=== PATIENT | female | born 1980 | race Hispanic/Latino ===

== ENCOUNTER 2021-09-30 01:12 | Emergency (ER) | payer MEDICARE ==
[2021-09-30 02:35] VITALS: BP 114/66
[2021-09-30] MEDS ORDERED: MORPHINE 4 MG/1 ML INJ IV ONE (03:00)
[2021-09-30] MEDS ORDERED: FAMOTIDINE 20 MG/2 ML INJ IV ONE (03:00)
[2021-09-30] MEDS ORDERED: SODIUM CHLORIDE 0.9% 1000 ML 1,000 ML IV ONE (03:00)
[2021-09-30] MEDS ORDERED: DICYCLOMINE 20 MG/2 ML INJ IM ONE (03:00)
[2021-09-30] MEDS ORDERED: ONDANSETRON 4 MG/2 ML INJ IV ONE (03:00)
--- NOTE | 2021-09-30 03:24 | XRay Report ---
CHEST 1 VIEW INDICATION / CLINICAL INFORMATION: dyspnea. COMPARISON: None available. FINDINGS: SUPPORT DEVICES: None. HEART / MEDIASTINUM: No significant abnormality. LUNGS / PLEURA: No significant pulmonary or pleural abnormality. No pneumothorax. ADDITIONAL FINDINGS: No significant additional findings. IMPRESSION: 1. No acute findings. Signer Name: Grecia Quick MD Signed: 09/30/2021 3:19 AM Workstation Name: [id number]
--- NOTE | 2021-09-30 03:33 | Emergency Department Report ---
ED N/V/D HPI - General Chief complaint: Abdominal Pain Stated complaint: FRANCIA/ABDOMINAL PAIN Time Seen by Provider: 09/30/21 02:54 Source: patient Mode of arrival: Ambulatory Limitations: No Limitations - History of Present Illness Initial comments: Patient is a 41-year-old female who is presenting with some epigastric discomfort and nausea. Patient states that 2 days ago she ate some pickled garlic. This is some that she made herself. She open the container and noticed that there was some mold growing. She thought she had taken out all the moldy pieces and ate a few but then the next day noted that she has some epigastric discomfort and nausea. Patient denies actual vomiting or diarrhea. States that there is some gurgling in her abdomen. Noted the next day that all of the garlic had turned green. Patient was concerned about botulism. She states she is short of breath and feels anxious. Patient has no drooping eyelids slurred speech problems speaking. Is no weakness in her shoulders and she still has ability to walk. - Related Data Previous Rx's Medication Instructions Recorded Last Taken Type Dicyclomine [Bentyl] 20 mg PO QID #10 tablet 09/30/21 Unknown Rx Famotidine [Pepcid] 20 mg PO BID #20 tablet 09/30/21 Unknown Rx Ondansetron [Zofran Odt] 4 mg PO Q8HR #14 tab.rapdis 09/30/21 Unknown Rx Allergies Allergy/AdvReac Type Severity Reaction Status Date / Time aripiprazole [From Abilify] Allergy Anaphylaxis Verified 09/30/21 02:39 azithromycin Allergy Anaphylaxis Verified 09/30/21 02:39 butorphanol [From Stadol] Allergy Anaphylaxis Verified 09/30/21 02:39 vortioxetine Allergy Anaphylaxis Verified 09/30/21 02:39 [From Trintellix] ED Review of Systems ROS: Stated complaint: FRANCIA/ABDOMINAL PAIN Other details as noted in HPI Comment: All other systems reviewed and negative ED Past Medical Hx - Past Medical History Previous Medical History?: Yes - Surgical History Past Surgical History?: No - Medications Home Medications: Home Medications Medication Instructions Recorded Confirmed Last Taken Type Dicyclomine [Bentyl] 20 mg PO QID #10 tablet 09/30/21 Unknown Rx Famotidine [Pepcid] 20 mg PO BID #20 tablet 09/30/21 Unknown Rx Ondansetron [Zofran Odt] 4 mg PO Q8HR #14 tab.rapdis 09/30/21 Unknown Rx ED Physical Exam - General Limitations: No Limitations General appearance: alert, in no apparent distress - Head Head exam: Present: atraumatic, normocephalic - Eye Eye exam: Present: normal appearance - ENT ENT exam: Present: mucous membranes moist - Neck Neck exam: Present: normal inspection - Respiratory Respiratory exam: Present: normal lung sounds bilaterally. Absent: respiratory distress, wheezes, rales, rhonchi - Cardiovascular Cardiovascular Exam: Present: regular rate, normal rhythm, normal heart sounds. Absent: systolic murmur, diastolic murmur, rubs, gallop - GI/Abdominal GI/Abdominal exam: Present: soft, normal bowel sounds, hyperactive bowel sounds. Absent: distended, tenderness, guarding, rebound - Extremities Exam Extremities exam: Present: normal inspection - Back Exam Back exam: Present: normal inspection - Neurological Exam Neurological exam: Present: alert, oriented X3 - Psychiatric Psychiatric exam: Present: normal affect, normal mood - Skin Skin exam: Present: warm, dry, intact, normal color. Absent: rash ED Course Vital Signs 09/30/21 02:33 Temperature 98.7 F Pulse Rate 70 Respiratory 18 Rate Blood Pressure 114/66 O2 Sat by Pulse 96 Oximetry ED Medical Decision Making - Radiology Data CHEST 1 VIEW INDICATION / CLINICAL INFORMATION: dyspnea. COMPARISON: None available. FINDINGS: SUPPORT DEVICES: None. HEART / MEDIASTINUM: No significant abnormality. LUNGS / PLEURA: No significant pulmonary or pleural abnormality. No pneumothorax. ADDITIONAL FINDINGS: No significant additional findings. IMPRESSION: 1. No acute findings. Signer Name: Grecia Quick MD Signed: 09/30/2021 3:19 AM Workstation Name: [id number] - Medical Decision Making Regarding the patient's shortness of breath chest x-ray is within normal limits patient likely with gastritis secondary to eating some moldy pickled garlic. Patient also likely with some anxiety. Patient given Zofran and Pepcid and the patient be discharged home. Critical care attestation.: If time is entered above; I have spent that time in minutes in the direct care of this critically ill patient, excluding procedure time. ED Disposition Clinical Impression: Gastritis, Food poisoning Disposition: HOME / SELF CARE / HOMELESS Is pt being admited?: No Does the pt Need Aspirin: No Condition: Stable Instructions: Abdominal Pain (ED), Gastritis, Adult, [id number], Food Poisoning, [id number] Time of Disposition: 04:42
[2021-09-30 04:18] LABS: Hematocrit 39.5 % (30.3-42.9); Hemoglobin 13.1 gm/dl (10.1-14.3); Mean Corpuscular HGB Conc 33 % (30-34); Mean Corpuscular Volume 90 fl (79-97); Platelet Count 293 K/mm3 (140-440); Red Blood Count 4.38 M/mm3 (3.65-5.03); Red Cell Distribution Width 12.4 % (13.2-15.2)
[2021-09-30 04:28] LABS: Alanine Aminotransferase 29 units/L (7-56); Albumin 4.3 g/dL (3.9-5); BUN/Creatinine Ratio 13; Blood Urea Nitrogen 10 mg/dL (7-17); Hemolysis Index 26
[2021-09-30 05:50] LABS: Basophils % (Manual) 0 % (0.0-1.8); Total Cells Counted 100
[2021-09-30 05:52] LABS: Platelet Estimate Consistent w Auto; RBC Morphology Normal
== END 2021-09-30 05:02 | disposition home or self-care (01) ==
LOC: ED 01:12
DX: K29.70 Gastritis, unspecified, without bleeding (principal); A05.9 Bacterial foodborne intoxication, unspecified; Z88.8 Allergy status to other drugs, medicaments and biological substances; Z88.1 Allergy status to other antibiotic agents; Z79.899 Other long term (current) drug therapy
CPT/HCPCS: 36415; 71045; 80053; 83690; 85007; 85025; 96372; 96374; 96375; 99284; J0500; J2270; J2405; J3490; J7030; Q0162

== ENCOUNTER 2022-03-19 21:07 | Emergency (ER) | payer MEDICARE ==
[2022-03-19 23:21] LABS: Basophils # (Auto) 0.1 K/mm3 (0.0-0.1); Basophils % (Auto) 0.5 % (0.0-1.8); Eosinophils # (Auto) 0.1 K/mm3 (0.0-0.4); Eosinophils % (Auto) 0.7 % (0.0-4.3); Hematocrit 40.5 % (30.3-42.9); Lymphocytes # (Auto) 3.7 K/mm3 (1.2-5.4); Lymphocytes % (Auto) 27.9 % (13.4-35.0); Mean Corpuscular HGB Conc 35 % (30-34); Mean Corpuscular Volume 92 fl (79-97); Monocytes # (Auto) 0.7 K/mm3 (0.0-0.8); Monocytes % (Auto) 5.5 % (0.0-7.3); Platelet Count 279 K/mm3 (140-440); Red Blood Count 4.41 M/mm3 (3.65-5.03); Red Cell Distribution Width 13.5 % (13.2-15.2)
[2022-03-19 23:42] LABS: Alanine Aminotransferase 15 units/L (7-56); Albumin 4.7 g/dL (3.9-5); BUN/Creatinine Ratio 10; Blood Urea Nitrogen 9 mg/dL (7-17); Calcium 9.8 mg/dL (8.4-10.2); Hemolysis Index 23
[2022-03-20] MEDS ORDERED: FAMOTIDINE 20 MG/2 ML INJ IV ONE (02:00)
[2022-03-20] MEDS ORDERED: MORPHINE 4 MG/1 ML INJ IV ONE (02:01)
[2022-03-20] MEDS ORDERED: PROCHLORPERAZINE EDISYLATE 10 MG/2 ML VIAL IV ONE (02:01)
[2022-03-20] MEDS ORDERED: PROMETHAZINE 25 MG TAB PO ONE (02:58)
[2022-03-20] MEDS ORDERED: FAMOTIDINE 20 MG TAB PO ONE (02:58)
[2022-03-20 03:20] LABS: Bacteria,Urine 1+ /HPF (Negative); Mucus,Urine 3+ /HPF
[2022-03-20 03:21] LABS: Bilirubin,Urine Negative (Negative); Color,Urine Yellow (Yellow)
[2022-03-20 03:22] LABS: Blood,Urine Moderate (Negative)
--- NOTE | 2022-03-20 03:34 | Cat Scan Report ---
CT ABDOMEN AND PELVIS WITHOUT CONTRAST INDICATION / CLINICAL INFORMATION: Abdominal pain, h/o chronic pancreatitis. TECHNIQUE: Axial CT images were obtained through the abdomen and pelvis without IV contrast. All CT scans at this location are performed using CT dose reduction for ALARA by means of automated exposure control. COMPARISON: None available. FINDINGS: LOWER CHEST: No significant abnormality of the imaged chest. LIVER: No focal lesion. No acute findings. GALLBLADDER / BILE DUCTS: Cholecystectomy. Biliary ducts grossly unremarkable. SPLEEN: No significant abnormality. PANCREAS: No significant abnormality. ADRENALS: No significant abnormality. KIDNEYS/URETERS: No stones or hydronephrosis. No solid renal lesion. STOMACH / DUODENUM / SMALL BOWEL: The stomach, duodenum, and small bowel demonstrate no significant a bnormality. No specific abnormality of the mesentery demonstrated. COLON: No significant abnormality. APPENDIX: No significant abnormality. PERITONEUM: No free air or free fluid are present within the abdomen or pelvis. LYMPH NODES: No significant adenopathy. AORTA / ARTERIES: No significant abnormality. IVC / VEINS: No significant abnormality. URINARY BLADDER: Decompressed REPRODUCTIVE ORGANS: No significant abnormality. SKELETAL SYSTEM: No significant abnormality. ADDITIONAL ABDOMINAL/PELVIC FINDINGS: None. IMPRESSION: 1. No imaging findings to suggest etiology of the provided symptoms. Signer Name: Jeremiah Young II, MD Signed: 03/20/2022 3:30 AM Workstation Name: [id number]
[2022-03-20] MEDS ORDERED: LIDOCAINE-MPF (1%) 10 MG/1 ML VIAL 5 ML INFILTRATI ONE (04:06)
--- NOTE | 2022-03-20 04:13 | Emergency Department Report ---
ED Abdominal Pain HPI - General Chief Complaint: Abdominal Pain Stated Complaint: N/V, ABDOMINAL PAIN Source: patient Mode of arrival: Ambulatory Limitations: No Limitations - History of Present Illness Initial Comments: Patient is a 41-year-old female with a history of chronic pancreatitis who presents to the ED with complaint of acute onset persistent epigastric pain that radiates to the periumbilical area and mid posterior thoracic area as well as low back pain with nausea and vomiting for the last 3 days. Patient states that the symptoms are consistent with her chronic pancreatitis flareup. Patient also states that she has hardly voided urine because of nausea and vomiting limiting her ability to drink fluids. Patient denies dizziness, syncope, chest pain, shortness of breath, diarrhea, dysuria, urinary frequency and urgency, chest pain and shortness of breath, fever and chills or headache and lightheadedness. MD Complaint: abdominal pain, other (Nausea and vomiting, mid and low back pain) -: Sudden, days(s) (3) Location: periumbilical, epigastric Radiation: epigastric, back Migration to: no migration Severity: severe Severity scale (0 -10): 10 Quality: aching, sharp Consistency: constant Improves With: nothing Worsens With: nothing Associated Symptoms: denies other symptoms, nausea, vomiting, anorexia. denies: diarrhea, fever, chills, dysuria, hematemesis, hematochezia, melena, hematuria, syncope - Related Data Previous Rx's Medication Instructions Recorded Last Taken Type Dicyclomine [Bentyl] 20 mg PO QID #10 tablet 09/30/21 Unknown Rx Famotidine [Pepcid] 20 mg PO BID #20 tablet 09/30/21 Unknown Rx Ondansetron [Zofran Odt] 4 mg PO Q8HR #14 tab.rapdis 09/30/21 Unknown Rx Dicyclomine [Bentyl] 20 mg PO Q6H PRN #30 tablet 03/20/22 Unknown Rx Famotidine [Pepcid] 20 mg PO BID #60 tablet 03/20/22 Unknown Rx Ketorolac [Toradol] 10 mg PO Q8H PRN #20 tab 03/20/22 Unknown Rx Promethazine [Phenergan] 25 mg PO Q6HR PRN #30 tab 03/20/22 Unknown Rx cephALEXin [Keflex] 500 mg PO Q6HR #40 capsule 03/20/22 Unknown Rx Allergies Allergy/AdvReac Type Severity Reaction Status Date / Time aripiprazole [From Abilify] Allergy Anaphylaxis Verified 09/30/21 02:39 azithromycin Allergy Anaphylaxis Verified 09/30/21 02:39 butorphanol [From Stadol] Allergy Anaphylaxis Verified 09/30/21 02:39 vortioxetine Allergy Anaphylaxis Verified 09/30/21 02:39 [From Trintellix] ED Review of Systems ROS: Stated complaint: N/V, ABDOMINAL PAIN Other details as noted in HPI Constitutional: denies: chills, fever Eyes: denies: eye pain, eye discharge, vision change ENT: denies: ear pain, throat pain Respiratory: denies: cough, shortness of breath, wheezing Cardiovascular: denies: chest pain, palpitations Endocrine: no symptoms reported Gastrointestinal: abdominal pain, nausea, vomiting. denies: diarrhea Genitourinary: denies: urgency, dysuria, discharge Musculoskeletal: back pain. denies: joint swelling, arthralgia Skin: denies: rash, lesions Neurological: denies: headache, weakness, paresthesias Psychiatric: denies: anxiety, depression Hematological/Lymphatic: denies: easy bleeding, easy bruising ED Past Medical Hx - Past Medical History Previous Medical History?: Yes Additional medical history: chronic pancreatitis. Chrohn's - Surgical History Past Surgical History?: Yes Additional Surgical History: Per pt: Biliary sphincter plasty. 11 ERCP's. 3 MRCP's. facial tumor removalport placement and removal - Medications Home Medications: Home Medications Medication Instructions Recorded Confirmed Last Taken Type Dicyclomine [Bentyl] 20 mg PO QID #10 tablet 09/30/21 Unknown Rx Famotidine [Pepcid] 20 mg PO BID #20 tablet 09/30/21 Unknown Rx Ondansetron [Zofran Odt] 4 mg PO Q8HR #14 tab.rapdis 09/30/21 Unknown Rx Dicyclomine [Bentyl] 20 mg PO Q6H PRN #30 tablet 03/20/22 Unknown Rx Famotidine [Pepcid] 20 mg PO BID #60 tablet 03/20/22 Unknown Rx Ketorolac [Toradol] 10 mg PO Q8H PRN #20 tab 03/20/22 Unknown Rx Promethazine [Phenergan] 25 mg PO Q6HR PRN #30 tab 03/20/22 Unknown Rx cephALEXin [Keflex] 500 mg PO Q6HR #40 capsule 03/20/22 Unknown Rx ED Physical Exam - General Limitations: No Limitations General appearance: alert, in no apparent distress - Head Head exam: Present: atraumatic, normocephalic, normal inspection - Eye Eye exam: Present: normal appearance, PERRL, EOMI Pupils: Present: normal accommodation - ENT ENT exam: Present: normal exam, normal orophraynx, mucous membranes moist, TM's normal bilaterally, normal external ear exam - Neck Neck exam: Present: normal inspection, full ROM - Respiratory Respiratory exam: Present: normal lung sounds bilaterally. Absent: respiratory distress, wheezes, rales, rhonchi, chest wall tenderness, accessory muscle use, decreased breath sounds - Cardiovascular Cardiovascular Exam: Present: regular rate, normal rhythm, normal heart sounds. Absent: systolic murmur, diastolic murmur, rubs, gallop - GI/Abdominal GI/Abdominal exam: Present: soft, tenderness (diffuse upper and periumbilical pain), normal bowel sounds. Absent: guarding, rebound, hyperactive bowel sounds, hypoactive bowel sounds, organomegaly, mass, bruit - Extremities Exam Extremities exam: Present: normal inspection, full ROM, normal capillary refill. Absent: tenderness - Back Exam Back exam: Present: normal inspection, full ROM. Absent: tenderness, CVA tenderness (R), CVA tenderness (L), muscle spasm, paraspinal tenderness, vertebr al tenderness - Neurological Exam Neurological exam: Present: alert, oriented X3, CN II-XII intact, normal gait, reflexes normal - Psychiatric Psychiatric exam: Present: normal affect, normal mood - Skin Skin exam: Present: warm, dry, intact, normal color. Absent: rash ED Course Vital Signs 03/19/22 22:43 Temperature 98.7 F Pulse Rate 70 Respiratory 18 Rate Blood Pressure 108/87 [Right] O2 Sat by Pulse 100 Oximetry ED Medical Decision Making - Lab Data Result diagrams: 03/19/22 22:56 03/19/22 22:56 - Radiology Data Radiology results: report reviewed, image reviewed [facility] [address] [place] [address] Cat Scan Report Signed Patient: ROGELIO SHI MR#: [id number] : 1980 Acct:[id number] Age/Sex: 41 / F ADM Date: 03/19/22 Loc: ED Attending Dr: Ordering Physician: HANNAH ZUNIGA Date of Service: 03/20/22 Procedure(s): CT abdomen pelvis wo con Accession Number(s): [id number] cc: HANNAH ZUNIGA CT ABDOMEN AND PELVIS WITHOUT CONTRAST INDICATION / CLINICAL INFORMATION: Abdominal pain, h/o chronic pancreatitis. TECHNIQUE: Axial CT images were obtained through the abdomen and pelvis without IV contrast. All CT scans at this location are performed using CT dose reduction for ALARA by kristin marr of automated exposure control. COMPARISON: None available. FINDINGS: LOWER CHEST: No significant abnormality of the imaged chest. LIVER: No focal lesion. No acute findings. GALLBLADDER / BILE DUCTS: Cholecystectomy. Biliary ducts grossly unremarkable. SPLEEN: No significant abnormality. PANCREAS: No significant abnormality. ADRENALS: No significant abnormality. KIDNEYS/URETERS: No stones or hydronephrosis. No solid renal lesion. STOMACH / DUODENUM / SMALL BOWEL: The stomach, duodenum, and small bowel demonstrate no significant abnormality. No specific abnormality of the mesentery demonstrated. COLON: No significant abnormality. APPENDIX: No significant abnormality. PERITONEUM: No free air or free fluid are present within the abdomen or pelvis. LYMPH NODES: No significant adenopathy. AORTA / ARTERIES: No significant abnormality. IVC / VEINS: No significant abnormality. URINARY BLADDER: Decompressed REPRODUCTIVE ORGANS: No significant abnormality. SKELETAL SYSTEM: No significant abnormality. ADDITIONAL ABDOMINAL/PELVIC FINDINGS: None. IMPRESSION: 1. No imaging findings to suggest etiology of the provided symptoms. Signer Name: Tracy Cuba II, MD Signed: 03/20/2022 3:30 AM Workstation Name: [id number] Transcribed By: CARLITA Dictated By: TRACY CUBA II, MD Electronically Authenticated By: TRACY CUBA II, MD Signed Date/Time: 03/20/22329 DD/ 8 TD/TT: Print - Medical Decision Making This is a 41-year-old female with a history of chronic pancreatitis who presents to the ED with complaint of acute onset persistent epigastric pain that radiates to the periumbilical area and mid posterior thoracic area as well as low back pain with nausea and vomiting for the last 3 days. Patient states that the symptoms are consistent with her chronic pancreatitis flareup. Patient also states that she has hardly voided urine because of nausea and vomiting limiting her ability to drink fluids. In the ED, patient is alert and oriented x3 and is not in any distress. Patient was treated in the ED for nausea and vomiting and pain. Lab test results were reviewed and showed acute leukocytosis of 13,300. Urinalysis showed significant urinary tract infection. Abdomen pelvis CT scan without contrast showed no acute abnormalities. Patient also received Rocephin 1 g intramuscular injection for acute urinary tract infection in the ED. On reevaluation, patient's pain is well controlled medication. Patient was discharged home on pain medications, antiemetics and antibiotics and advised to follow-up with her primary care physician in 7 to 10 days for reevaluation or return to the ED immediately if symptoms get worse. - Differential Diagnosis Pancreatitis; UTI; GERD; SBO; appendicitis; ovarian cyst; kidney stones Critical care attestation.: If time is entered above; I have spent that time in minutes in the direct care of this critically ill patient, excluding procedure time. ED Disposition Clinical Impression: Nausea and vomiting in adult patient, Acute urinary tract infection Abdominal pain Qualifiers: Abdominal location: generalized Qualified Code(s): R10.84 - Generalized abdominal pain Disposition: 01 HOME / SELF CARE / HOMELESS Is pt being admited?: No Does the pt Need Aspirin: No Condition: Stable Instructions: Abdominal Pain (ED), Abdominal Pain, Adult, [id number], Nausea and Vomiting, Adult, [id number], Urinary Tract Infection, Adult, [id number] Additional Instructions: All lab test results were reviewed and are all nonactionable except for acute leukocytosis of 13,300 and significant urinary tract infection in urinalysis. The abdomen pelvis CT scan without contrast showed no acute abnormalities. Therefore take medications with food, drink plenty of fluids, follow-up with your primary care physician in 7 to 10 days for reevaluation. Return to the ED immediately if symptoms get worse. Prescriptions: Dicyclomine [Bentyl] 20 mg PO Q6H PRN #30 tablet PRN Reason: abdominal pain cephALEXin [Keflex] 500 mg PO Q6HR #40 capsule Famotidine [Pepcid] 20 mg PO BID #60 tablet Promethazine [Phenergan] 25 mg PO Q6HR PRN #30 tab PRN Reason: Nausea Ketorolac [Toradol] 10 mg PO Q8H PRN #20 tab PRN Reason: Pain Referrals: MIKE LEONARD MD [Primary Care Provider] - 3-5 Days Time of Disposition: 04:14 Print Language: AZERBAIJANI
[2022-03-20 05:19] VITALS: BP 107/73
== END 2022-03-20 05:27 | disposition home or self-care (01) ==
LOC: ED 21:07
DX: N39.0 Urinary tract infection, site not specified (principal); R10.13 Epigastric pain; R11.2 Nausea with vomiting, unspecified; Z91.09 Other allergy status, other than to drugs and biological substances; Z79.899 Other long term (current) drug therapy
CPT/HCPCS: 36415; 74176; 80053; 81001; 83690; 85025; 87086; 96372; 96374; 99284; J0696; J0780; J2270; J3490; Q0169

== ENCOUNTER 2022-03-26 23:21 | Emergency (ER) | payer MEDICARE ==
[2022-03-27 01:39] LABS: Bacteria,Urine 1+ /HPF (Negative); Mucus,Urine 2+ /HPF; WBC,Urine < 1.0 /HPF (0.0-6.0)
[2022-03-27 01:44] LABS: Bilirubin,Urine Negative (Negative); Color,Urine Yellow (Yellow)
[2022-03-27 01:45] LABS: Blood,Urine Negative (Negative)
[2022-03-27 02:34] LABS: Basophils # (Auto) 0.1 K/mm3 (0.0-0.1); Basophils % (Auto) 0.9 % (0.0-1.8); Eosinophils # (Auto) 0.2 K/mm3 (0.0-0.4); Eosinophils % (Auto) 1.3 % (0.0-4.3); Hemoglobin 13.7 gm/dl (10.1-14.3); Lymphocytes # (Auto) 4.5 K/mm3 (1.2-5.4); Lymphocytes % (Auto) 32.9 % (13.4-35.0); Mean Corpuscular HGB Conc 34 % (30-34); Mean Corpuscular Volume 93 fl (79-97); Monocytes # (Auto) 0.8 K/mm3 (0.0-0.8); Monocytes % (Auto) 5.8 % (0.0-7.3); Platelet Count 249 K/mm3 (140-440); Red Blood Count 4.32 M/mm3 (3.65-5.03); Red Cell Distribution Width 13.6 % (13.2-15.2)
[2022-03-27 02:49] LABS: Alanine Aminotransferase 16 units/L (7-56); Albumin 4.3 g/dL (3.9-5); Blood Urea Nitrogen 13 mg/dL (7-17); Calcium 9.6 mg/dL (8.4-10.2); Hemolysis Index 31
[2022-03-27 02:50] LABS: BUN/Creatinine Ratio 19
--- NOTE | 2022-03-27 06:53 | Emergency Department Report ---
HPI - General Chief Complaint: Abdominal Pain PUI?: No Time Seen by Provider: 03/27/22 06:42 - HPI HPI: This is a 41-year-old female with multiple medical comorbidities who presents for evaluation of abdominal pain. She complains of persistent swelling to the right upper part of her abdomen "for a while now." She states the pain is burning and constant. She denies any nausea vomiting fevers or chills. Patient takes morphine both immediate and extended release at home, and states she last had a dose of her pain medication yesterday morning. She denies any nausea vomiting fevers or chills. No UTI symptoms. No chest pain shortness of breath difficulty breathing or palpitations. Pain currently is 6 out of 10 ED Past Medical Hx - Past Medical History Previous Medical History?: Yes Additional medical history: chronic pancreatitis. Chrohn's - Surgical History Past Surgical History?: Yes Additional Surgical History: Per pt: Biliary sphincter plasty. 11 ERCP's. 3 MRCP's. facial tumor removalport placement and removal - Social History Smoking Status: Never Smoker Substance Use Type: Marijuana - Medications Home Medications: Home Medications Medication Instructions Recorded Confirmed Last Taken Type Dicyclomine [Bentyl] 20 mg PO QID #10 tablet 09/30/21 Unknown Rx Famotidine [Pepcid] 20 mg PO BID #20 tablet 09/30/21 Unknown Rx Ondansetron [Zofran Odt] 4 mg PO Q8HR #14 tab.rapdis 09/30/21 Unknown Rx Dicyclomine [Bentyl] 20 mg PO Q6H PRN #30 tablet 03/20/22 Unknown Rx Famotidine [Pepcid] 20 mg PO BID #60 tablet 03/20/22 Unknown Rx Ketorolac [Toradol] 10 mg PO Q8H PRN #20 tab 03/20/22 Unknown Rx Promethazine [Phenergan SUPPOS] 25 mg [place] Q6HR PRN #20 supp.rect 03/20/22 Unknown Rx Promethazine [Phenergan] 25 mg PO Q6HR PRN #30 tab 03/20/22 Unknown Rx cephALEXin [Keflex] 500 mg PO Q6HR #40 capsule 03/20/22 Unknown Rx Ondansetron [Zofran Odt] 4 mg PO Q8HR 3 Days #12 tab.rapdis 03/27/22 Unknown Rx ED Review of Systems ROS: Stated complaint: HERNIA PAIN/SWOLLEN SCAR Other details as noted in HPI Comment: All other systems reviewed and negative Gastrointestinal: abdominal pain Physical Exam - Physical Exam Vital Signs: Vital Signs 03/27/22 03/27/22 00:57 06:10 Temperature 97.8 F 98.0 F Pulse Rate 74 88 Respiratory 18 14 Rate Blood Pressure 124/93 115/72 [Left] O2 Sat by Pulse 99 99 Oximetry General: Gen: pt is well appearing, no acute distress, typing on personal cellular telephone, comfortable appearing, no drooling no stridor no respiratory distress, breathing nonlabored, and hot HEENT: Normocephalic atraumatic pupils equally round and reactive to light extraocular muscles intact sclera anicteric Neck: Full range of motion, no midline spinal tenderness palpation, no JVD, no carotid bruits, no nuchal rigidity CVS: S1-S2 regular rate and rhythm with no gallops rubs or murmurs, chest wall nontender Pulmonary: Clear to auscultation bilaterally, no wheezes rales or rhonchi Abdomen: Soft nondistended nontender no guarding or rebound tenderness, palpable RUQ ventral hernia; no palpable deformities or step-offs, normal active bowel sounds, no hepatosplenomegaly, no pulsatile masses : Deferred Extremities: No cyanosis no clubbing no edema, intact distal peripheral pulses, Integumentary: Skin normal, no petechia no purpura no abscess no lacerations no evidence of trauma no evidence of infection Neuro: Patient is awake alert and oriented to person place time situation, mentating well, cranial nerves II through XII intact, no focal neurodeficits, sensation grossly tact Psych: Calm cooperative, mood affect normal ED Course Vital Signs 03/27/22 03/27/22 00:57 06:10 Temperature 97.8 F 98.0 F Pulse Rate 74 88 Respiratory 18 14 Rate Blood Pressure 124/93 115/72 [Left] O2 Sat by Pulse 99 99 Oximetry - Consultations Consultation #1: 03/27/22 12:21 Case reviewed via telephone with on-call general surgeon, Dr. Ardon. Per her verbal report, reviewed the patient's diagnostic imaging. I informed her that the patient has no active signs or symptoms of an incarcerated hernia at this time and is well-appearing. She states that if the patient's pain is natalie ropriately controlled, she may be discharged and referred to her for outpatient follow-up for ventral hernia. ED Medical Decision Making - Lab Data Result diagrams: 03/27/22 02:07 03/27/22 02:07 - Radiology Data Radiology results: report reviewed - Medical Decision Making Is a 41-year-old female with multiple medical comorbidities who presents for evaluation of acute on chronic right upper abdominal pain. Vital signs stable. Labs reviewed. Lipase is mildly elevated but CT scan per reading radiologist demonstrates no evidence of acute pancreatitis. Patient's ventral hernia noted as well as ovarian cyst. Case was reviewed and discussed with on-call general surgeon, . CT patient's chart for my documented discussion with her. Of note: I reviewed the pt's [facility] record reveals that the pt has received multiple Morphine sulfate tablets, both IR and ER, from a provider documented as Marly Wood MD, in [place]. Morphine 15mg IR, dispense # 90 tablets, and Morphine 15mg ER, Dispense #60 tablets, were last dispensed on 02/22/22. The patient is listed as having received to this chronically, and monthly, as far back as 03/2021. The patient was reassessed her multiple times. She appeared extremely well during my multiple reassessments, and she was never per my assessment in any extremis. Pain management options were discussed with her and she agreed to receive 1 tablet of Percocet. She was also ordered for acetaminophen and Louise dol, which she took as well. She is tolerating p.o. challenge here without difficulty or reproduction of worsening of her symptoms. No further emergent work-up warranted at this time. Patient stable for discharge to home. - Differential Diagnosis 41-year-old female with multiple medical comorbidities Critical Care Time: No Critical care attestation.: If time is entered above; I have spent that time in minutes in the direct care of this critically ill patient, excluding procedure time. ED Disposition Clinical Impression: Abdominal pain, Ventral hernia without obstruction or gangrene Disposition: 01 HOME / SELF CARE / HOMELESS Is pt being admited?: No Does the pt Need Aspirin: No Condition: Stable Instructions: Abdominal Pain (ED) Additional Instructions: Telephone Dr. Ardon's office to schedule an outpatient follow up appointment as soon as possible. These call her office today upon being discharged from em ergency department. This is very important. Continue to take pain medication, as prescribed. Take Zofran as needed for nausea. Serve your symptoms very carefully. Return to the nearest emergency department soon as possible if you develop severe or worsening pain, vomiting, inability to tolerate liquids or solids, any fever of 100.4 Fahrenheit or higher, or if any other new worrisome symptoms develop. Prescriptions: Ondansetron [Zofran Odt] 4 mg PO Q8HR 3 Days #12 tab.rapdis Referrals: WILL ARDON DO [Staff Physician] - 3-5 Days PRIMARY CARE, [Primary Care Provider] - 3-5 Days
[2022-03-27 07:47] LABS: HCG Qualitative,Urine Negative (Negative)
[2022-03-27 07:49] LABS: Amphetamine Screen,Urine Negative; Benzodiazepines Screen,Urine Negative; Cannabinoid Screen,Urine Negative; Cocaine Screen,Urine Negative; Methadone Screen,Urine Negative
[2022-03-27 08:02] LABS: Opiate Screen,Urine Positive
--- NOTE | 2022-03-27 09:57 | Cat Scan Report ---
CT ABDOMEN AND PELVIS WITHOUT CONTRAST INDICATION / CLINICAL INFORMATION: chronic pancreatitis, p/w epigastric/LUQ abdominal pain. TECHNIQUE: Axial CT images were obtained through the abdomen and pelvis without IV contrast. Sagittal and reynolds l reformatted images. All CT scans at this location are performed using CT dose reduction for ALARA b y means of automated exposure control. COMPARISON: 03/20/2022 FINDINGS: LOWER CHEST: No significant abnormality. LIVER: No significant abnormality. GALLBLADDER: Surgically absent. BILE DUCTS: No significant abnormality. PANCREAS: No significant abnormality. No CT findings to suggest acute or chronic pancreatitis. SPLEEN: No significant abnormality. ADRENALS: No significant abnormality. RIGHT KIDNEY and URETER: No significant abnormality. LEFT KIDNEY and URETER: No significant abnormality. STOMACH and SMALL BOWEL: No significant abnormality. COLON: No significant abnormality. APPENDIX: No significant abnormality. PERITONEUM: No free fluid. No free air. No fluid collection. LYMPH NODES: No significant adenopathy. AORTA and ARTERIES: No significant abnormality. IVC and VEINS: No significant abnormality. URINARY BLADDER: No significant abnormality. REPRODUCTIVE ORGANS: There are 2 hypodense lesions suggestive of cysts in the left ovary measuring 2. 3 cm and 2.7 cm. On the previous exam, there appeared to be a solitary 2.1 cm left ovarian cyst. The uterus and right ovary are unremarkable. ADDITIONAL FINDINGS: Small ventral wall defects containing fat are identified between the xiphoid and umbilicus, unchanged. SKELETAL SYSTEM: No significant abnormality. IMPRESSION: Left ovarian cysts as described. Increased since the previous exam. No significant abnormality is detected within the pancreas. Signer Name: Deangelo Tobar Jr, MD Signed: 03/27/2022 9:52 AM Workstation Name: [id number]
[2022-03-27] MEDS ORDERED: oxyCODONE /ACETAMINOPHEN 5-325MG TAB PO ONE (10:20)
[2022-03-27] MEDS ORDERED: ACETAMINOPHEN 325 MG TAB PO ONE (10:20)
[2022-03-27] MEDS ORDERED: KETOROLAC 60 MG/2 ML INJ IM ONE (10:20)
[2022-03-27 11:20] VITALS: BP 125/72
== END 2022-03-27 11:21 | disposition home or self-care (01) ==
LOC: ED 23:21
DX: R10.11 Right upper quadrant pain (principal); K43.9 Ventral hernia without obstruction or gangrene; Z79.899 Other long term (current) drug therapy
CPT/HCPCS: 36415; 74176; 80053; 80307; 81001; 81025; 83690; 85025; 96372; 99284; J1885

== ENCOUNTER 2022-04-19 17:25 | Emergency (ER) | payer MEDICARE ==
[2022-04-19 19:29] LABS: Mean Corpuscular HGB Conc 33 % (30-34); Mean Corpuscular Volume 95 fl (79-97); Red Blood Count 4.74 M/mm3 (3.65-5.03); Red Cell Distribution Width 13.6 % (13.2-15.2)
[2022-04-19 19:30] LABS: Platelet Count 311 K/mm3 (140-440)
[2022-04-19 19:39] LABS: Alanine Aminotransferase 18 units/L (7-56); Albumin 4.8 g/dL (3.9-5); BUN/Creatinine Ratio 15; Blood Urea Nitrogen 12 mg/dL (7-17); Calcium 9.7 mg/dL (8.4-10.2); Hemolysis Index 88
[2022-04-20] MEDS ORDERED: HYOSCYAMINE SUBL 0.125 MG TAB SL ONE (00:34)
[2022-04-20] MEDS ORDERED: ONDANSETRON 4 MG ODT TAB PO STA (00:34)
[2022-04-20] MEDS ORDERED: MORPHINE 4 MG/1 ML INJ IM ONE (00:35)
[2022-04-20 00:37] LABS: Color,Urine Straw (Yellow)
[2022-04-20 00:41] LABS: Mucus,Urine 2+ /HPF
[2022-04-20] MEDS ORDERED: SODIUM CHLORIDE 0.9% 1000 ML 1,000 ML IV ONE (04:18)
[2022-04-20] MEDS ORDERED: ONDANSETRON 4 MG/2 ML INJ IV STA (04:18)
[2022-04-20] MEDS ORDERED: MORPHINE 4 MG/1 ML INJ IV STA (04:18)
--- NOTE | 2022-04-20 06:19 | Emergency Department Report ---
<MANPREET VELEZ - Last Filed: 04/20/22 06:15> ED Abdominal Pain HPI - General Chief Complaint: Abdominal Pain Stated Complaint: SEVERE ABD PAIN Time Seen by Provider: 04/20/22 00:26 Source: patient Mode of arrival: Ambulatory Limitations: No Limitations - History of Present Illness Initial Comments: 41-year-old female with past medical history of chronic recurrent pancreatitis presents emergency department complaining of a likely acute pancreatitis flareup after eating what she calls a very fatty meal. States that pancreatitis is controlled with morphine only as she has tried several of the surgical and nonsurgical treatment but have been unsuccessful. 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 She denies any use of illicit drugs or EtOH stimulating this onset or new medications. Reports no foreign travel or sick contacts. MD Complaint: abdominal pain -: Gradual Location: epigastric Radiation: RUQ Severity: moderate, severe Severity scale (0 -10): 8 Quality: aching, sharp Consistency: constant Improves With: nothing Worsens With: eating Associated Symptoms: nausea, vomiting. denies: dysuria, hematuria - Related Data Previous Rx's Medication Instructions Recorded Last Taken Type Dicyclomine [Bentyl] 20 mg PO QID #10 tablet 09/30/21 Unknown Rx Famotidine [Pepcid] 20 mg PO BID #20 tablet 09/30/21 Unknown Rx Ondansetron [Zofran Odt] 4 mg PO Q8HR #14 tab.rapdis 09/30/21 Unknown Rx Dicyclomine [Bentyl] 20 mg PO Q6H PRN #30 tablet 03/20/22 Unknown Rx Famotidine [Pepcid] 20 mg PO BID #60 tablet 03/20/22 Unknown Rx Ketorolac [Toradol] 10 mg PO Q8H PRN #20 tab 03/20/22 Unknown Rx Promethazine [Phenergan SUPPOS] 25 mg [place] Q6HR PRN #20 supp.rect 03/20/22 Unknown Rx Promethazine [Phenergan] 25 mg PO Q6HR PRN #30 tab 03/20/22 Unknown Rx cephALEXin [Keflex] 500 mg PO Q6HR #40 capsule 03/20/22 Unknown Rx Ondansetron [Zofran Odt] 4 mg PO Q8HR 3 Days #12 tab.rapdis 03/27/22 Unknown Rx Dicyclomine [Bentyl] 20 mg PO Q12H PRN #12 tablet 04/20/22 Unknown Rx Ondansetron [Zofran Odt] 4 mg PO Q8HR PRN #12 tab.rapdis 04/20/22 Unknown Rx Allergies Allergy/AdvReac Type Severity Reaction Status Date / Time aripiprazole [From Abilify] Allergy Anaphylaxis Verified 04/19/22 18:19 azithromycin Allergy Anaphylaxis Verified 04/19/22 18:19 butorphanol [From Stadol] Allergy Anaphylaxis Verified 04/19/22 18:19 vortioxetine Allergy Anaphylaxis Verified 04/19/22 18:19 [From Trintellix] ED Review of Systems Comment: All other systems reviewed and negative ED Past Medical Hx - Past Medical History Previous Medical History?: Yes Additional medical history: chronic pancreatitis. Chrohn's - Surgical History Past Surgical History?: No Additional Surgical History: Per pt: Biliary sphincter plasty. 11 ERCP's. 3 MRCP's. facial tumor removalport placement and removal - Social History Smoking Status: Never Smoker Substance Use Type: Marijuana - Medications Home Medications: Home Medications Medication Instructions Recorded Confirmed Last Taken Type Dicyclomine [Bentyl] 20 mg PO QID #10 tablet 09/30/21 Unknown Rx Famotidine [Pepcid] 20 mg PO BID #20 tablet 09/30/21 Unknown Rx Ondansetron [Zofran Odt] 4 mg PO Q8HR #14 tab.rapdis 09/30/21 Unknown Rx Dicyclomine [Bentyl] 20 mg PO Q6H PRN #30 tablet 03/20/22 Unknown Rx Famotidine [Pepcid] 20 mg PO BID #60 tablet 03/20/22 Unknown Rx Ketorolac [Toradol] 10 mg PO Q8H PRN #20 tab 03/20/22 Unknown Rx Promethazine [Phenergan SUPPOS] 25 mg [place] Q6HR PRN #20 supp.rect 03/20/22 Unknown Rx Promethazine [Phenergan] 25 mg PO Q6HR PRN #30 tab 03/20/22 Unknown Rx cephALEXin [Keflex] 500 mg PO Q6HR #40 capsule 03/20/22 Unknown Rx Ondansetron [Zofran Odt] 4 mg PO Q8HR 3 Days #12 tab.rapdis 03/27/22 Unknown Rx Dicyclomine [Bentyl] 20 mg PO Q12H PRN #12 tablet 04/20/22 Unknown Rx Ondansetron [Zofran Odt] 4 mg PO Q8HR PRN #12 tab.rapdis 04/20/22 Unknown Rx ED Physical Exam - General Limitations: No Limitations General appearance: alert, in no apparent distress - Head Head exam: Present: atraumatic, normocephalic - Eye Eye exam: Present: normal appearance - ENT ENT exam: Present: mucous membranes moist - Neck Neck exam: Present: normal inspection - Respiratory Respiratory exam: Present: normal lung sounds bilaterally. Absent: respiratory distress - Cardiovascular Cardiovascular Exam: Present: regular rate, normal rhythm. Absent: systolic murmur, diastolic murmur, rubs, gallop - GI/Abdominal GI/Abdominal exam: Present: soft, tenderness, normal bowel sounds, other (No Rovsing, no Campbell Thakkar, no Escalante sign). Absent: rebound, rigid, hypoactive bowel sounds, organomegaly, mass, bruit, pulsatile mass - Extremities Exam Extremities exam: Present: normal inspection - Back Exam Back exam: Present: normal inspection - Neurological Exam Neurological exam: Present: alert, oriented X3 - Psychiatric Psychiatric exam: Present: normal affect, normal mood - Skin Skin exam: Present: warm, dry, intact, normal color. Absent: rash ED Course - Reevaluation(s) Reevaluation #1: 04/20/22 06:17 She was initially treated with a liter of fluids as Zofran and morphine or IM symptoms did slightly improve and then began to reemerge after only about 20 to 25 minutes. At the present time she requested admission for IV hydration and bowel rest. Case was discussed with the attending who recommended going to go ahead and move forward with a CT scan. She was redosed with IV antibiotics and pain medications as well. ED Medical Decision Making - Lab Data Result diagrams: 04/19/22 18:59 04/19/22 18:59 ED Disposition Clinical Impression: Abdominal pain Qualifiers: Abdominal location: generalized Qualified Code(s): R10.84 - Generalized abdominal pain Nausea & vomiting Qualifiers: Vomiting type: unspecified Qualified Code(s): R11.2 - Nausea with vomiting, unspecified Disposition: HOME / SELF CARE / HOMELESS Condition: Stable Instructions: Abdominal Pain, Adult, Nausea and Vomiting, Adult, [id number], Abdominal Pain (ED) Additional Instructions: Follow-up with a primary care and mdm sr doctor in 3-5 days or if symptoms worsen and continue return to emergency room as soon as possible. Prescriptions: Dicyclomine [Bentyl] 20 mg PO Q12H PRN #12 tablet PRN Reason: abdominal pain Ondansetron [Zofran Odt] 4 mg PO Q8HR PRN #12 tab.rapdis PRN Reason: Nausea Referrals: JAIDA FREEMAN MD [Primary Care Provider] - 3-5 Days PRIMARY CARE, [Referring] - 3-5 Days BHARGAVI SANTILLAN MD [Staff Physician] - 3-5 Days [facility] [Provider Group] - 3-5 Days <JONNATHAN AMADOR - Last Filed: 04/20/22 11:42> ED Review of Systems ROS: Stated complaint: SEVERE ABD PAIN Other details as noted in HPI ED Course Vital Signs 04/19/22 04/19/22 04/20/22 18:17 23:08 04:30 Temperature 98 F 98.1 F Pulse Rate 106 H 78 Respiratory 18 18 16 Rate Blood Pressure 104/64 113/77 [Left] O2 Sat by Pulse 99 98 Oximetry 04/20/22 04/20/22 10:17 10:22 Temperature 97.9 F Pulse Rate 67 Respiratory 18 Rate Blood Pressure 114/76 [Left] O2 Sat by Pulse 98 98 Oximetry - Reevaluation(s) Reevaluation #2: 04/20/22 07:11 Patient was signed out to me for pending CT scan. Patient this time patient was reassessed and patient is comfortable and stated pain is under control. CT scan pending. Vital signs are stable. ED Medical Decision Making - Lab Data Result diagrams: 04/19/22 18:59 04/19/22 18:59 Lab Results 04/19/22 04/19/22 04/19/22 Range/Units 18:59 18:59 18:59 WBC 13.6 H (4.5-11.0) K/mm3 RBC 4.74 (3.65-5.03) M/mm3 Hgb 15.0 H (10.1-14.3) gm/dl Hct 45.0 H (30.3-42.9) % MCV 95 (79-97) fl MCH 32 (28-32) pg MCHC 33 (30-34) % RDW 13.6 (13.2-15.2) % Plt Count 311 (140-440) K/mm3 Lymph % (Auto) Visual Display Associate [place] % (Auto) Visual Display Associate Eos % (Auto) Visual Display Associate Baso % (Auto) Visual Display Associate Lymph # (Auto) Visual Display Associate [place] # (Auto) Visual Display Associate Eos # (Auto) Visual Display Associate Baso # (Auto) Visual Display Associate Seg Neutrophils % Visual Display Associate Seg Neutrophils # Visual Display Associate Sodium 137 (137-145) mmol/L Potassium 4.6 (3.6-5.0) mmol/L Chloride 101.2 (98-107) mmol/L Carbon Dioxide 21 L (22-30) mmol/L Anion Gap 19 mmol/L BUN 12 (7-17) mg/dL Creatinine 0.8 (0.6-1.2) mg/dL Estimated GFR > 60 ml/min BUN/Creatinine Ratio 15 % Glucose 106 H (65-100) mg/dL Calcium 9.7 (8.4-10.2) mg/dL Total Bilirubin 0.20 (0.1-1.2) mg/dL AST 25 (5-40) units/L ALT 18 (7-56) units/L Alkaline Phosphatase 72 (35-129) units/L Total Protein 7.3 (6.3-8.2) g/dL Albumin 4.8 (3.9-5) g/dL Albumin/Globulin Ratio 1.9 % Lipase (13-60) units/L HCG, Quant < 2 (0-4) mIU/mL Urine Color (Yellow) Urine Turbidity (Clear) Specific [place] (Man) (1.003-1.030) Ur Protein (Man) (Negative) mg/dL Ur Ketones (Man) (Negative) Urine Bilirubin (Man) (Negative) Urine WBC (Auto) (0.0-6.0) /HPF Urine RBC (Auto) (0.0-6.0) /HPF U Epithel Cells (Auto) (0-13.0) /HPF Urine RBC (Manual) (Negative) Urine Mucus /HPF Urine Yeast (Budding) /HPF 04/20/22 04/20/22 Range/Units 00:39 Unknown WBC (4.5-11.0) K/mm3 RBC (3.65-5.03) M/mm3 Hgb (10.1-14.3) gm/dl Hct (30.3-42.9) % MCV (79-97) fl MCH (28-32) pg MCHC (30-34) % RDW (13.2-15.2) % Plt Count (140-440) K/mm3 Lymph % (Auto) [place] % (Auto) Eos % (Auto) Baso % (Auto) Lymph # (Auto) [place] # (Auto) Eos # (Auto) Baso # (Auto) Seg Neutrophils % Seg Neutrophils # Sodium (137-145) mmol/L Potassium (3.6-5.0) mmol/L Chloride (98-107) mmol/L Carbon Dioxide (22-30) mmol/L Anion Gap mmol/L BUN (7-17) mg/dL Creatinine (0.6-1.2) mg/dL Estimated GFR ml/min BUN/Creatinine Ratio % Glucose (65-100) mg/dL Calcium (8.4-10.2) mg/dL Total Bilirubin (0.1-1.2) mg/dL AST (5-40) units/L ALT (7-56) units/L Alkaline Phosphatase (35-129) units/L Total Protein (6.3-8.2) g/dL Albumin (3.9-5) g/dL Albumin/Globulin Ratio % Lipase 142 H (13-60) units/L HCG, Quant (0-4) mIU/mL Urine Color Straw (Yellow) Urine Turbidity Clear (Clear) Specific [place] (Man) 1.030 (1.003-1.030) Ur Protein (Man) <30 mg dl (Negative) mg/dL Ur Ketones (Man) Negative (Negative) Urine Bilirubin (Man) Negative (Negative) Urine WBC (Auto) 1.0 (0.0-6.0) /HPF Urine RBC (Auto) 1.0 (0.0-6.0) /HPF U Epithel Cells (Auto) 3.0 (0-13.0) /HPF Urine RBC (Manual) Negative (Negative) Urine Mucus 2+ /HPF Urine Yeast (Budding) Few /HPF - Radiology Data [facility] [address] [place] [address] Cat Scan Report Signed Patient: ROGELIO SHI MR#: [id number] : 1980 Acct:[id number] Age/Sex: 41 / F ADM Date: 04/19/22 Loc: ED Attending Dr: Ordering Physician: HANNAH BERRIOS Date of Service: 04/20/22 Procedure(s): CT abdomen pelvis w con Accession Number(s): [id number] cc: HANNAH BERRIOS CT ABDOMEN AND PELVIS WITH CONTRAST INDICATION / CLINICAL INFORMATION: epigastric pain with chronic recurrent pancratitis. TECHNIQUE: Axial CT images were obtained through the abdomen and pelvis after 100 cc of Omnipaque 350 IV contrast. Sagittal and coronal reformatted images. All CT scans at this location are performed using CT dose reduction for ALARA by means of automated exposure control. COMPARISON: CT abdomen pelvis without contrast 03/27/2022 FINDINGS: LOWER CHEST: No significant abnormality. LIVER: No significant abnormality. GALLBLADDER: Surgically absent. BILE DUCTS: No significant abnormality. PANCREAS: No significant abnormality. SPLEEN: No significant abnormality. ADRENALS: No significant abnormality. RIGHT KIDNEY and URETER: No significant abnormality. LEFT KIDNEY and URETER: No significant abnormality. STOMACH and SMALL BOWEL: No significant abnormality. COLON: No significant abnormality. APPENDIX: No significant abnormality. PERITONEUM: No free fluid. No free air. No fluid collection. LYMPH NODES: No significant adenopathy. AORTA and ARTERIES: No significant abnormality. IVC and VEINS: No significant abnormality. URINARY BLADDER: No significant abnormality. REPRODUCTIVE ORGANS: The uterus and right adnexa are unremarkable. Only a single left ovarian cyst is identified on today's exam measuring 2.6 cm which appears unchanged. A more anterior left ovarian cyst measuring 2.3 cm seen on the previous exam has resolved. ADDITIONAL FINDINGS: Multiple small ventral wall defects containing fat are identified at midline between the umbilicus and xiphoid. These appear unchanged. SKELETAL SYSTEM: No significant abnormality. IMPRESSION: 1. No acute inflammatory process is appreciated. No clear explanation for epigastric pain. 2. Mild improvement in the left ovarian cysts as described. Signer Name: Deangelo Tobar Jr, MD Signed: 04/20/2022 9:31 AM Workstation Name: [id number] Transcribed By: TTR Dictated By: DEANGELO TOBAR JR, MD Electronically Authenticated By: DEANGELO TOBAR JR, MD Signed Date/Time: 04/20/22930 DD/ 5 TD/TT: - Medical Decision Making This is a 41-year-old female that presents with abdominal pain. Patient was originally seen by an Manpreet YOUNG and was signed out to me for pending CT scan. Labs obtained. UA obtained. CT of abdomen obtained and dictated by the radiologist. Patient is notified of the report with no questions noted by the patient. Vital signs are stable prior to discharge. Patient received medical treatment in the ED which patient stated symptoms has resovled and subsided. Was instructed note to operate any machinery due to possible drowsiness and stated someone will drive the patient home. A by mouth challenge has been obtained and patient tolerated well with no nausea vomiting. Patient was also instructed to Follow-up with a primary care and mdm sr doctor in 3-5 days or if symptoms worsen and continue return to emergency room as soon as possible. At time of discharge, the patient does not seem toxic or ill in appearance. No acute signs of distress noted. Patient agrees to discharge treatment plan of care. No further questions noted by the patient. Critical care attestation.: If time is entered above; I have spent that time in minutes in the direct care of this critically ill patient, excluding procedure time. ED Disposition Is pt being admited?: No Does the pt Need Aspirin: No Time of Disposition: 09:45
[2022-04-20] MEDS ORDERED: HYDROmorphone 1 MG/1 ML INJ IV ONE (08:42)
--- NOTE | 2022-04-20 09:35 | Cat Scan Report ---
CT ABDOMEN AND PELVIS WITH CONTRAST INDICATION / CLINICAL INFORMATION: epigastric pain with chronic recurrent pancratitis. TECHNIQUE: Axial CT images were obtained through the abdomen and pelvis after 100 cc of Omnipaque 350 IV contras t. Sagittal and coronal reformatted images. All CT scans at this location are performed using CT dose reduction for ALARA by means of automated exposure control. COMPARISON: CT abdomen pelvis without contrast 03/27/2022 FINDINGS: LOWER CHEST: No significant abnormality. LIVER: No significant abnormality. GALLBLADDER: Surgically absent. BILE DUCTS: No significant abnormality. PANCREAS: No significant abnormality. SPLEEN: No significant abnormality. ADRENALS: No significant abnormality. RIGHT KIDNEY and URETER: No significant abnormality. LEFT KIDNEY and URETER: No significant abnormality. STOMACH and SMALL BOWEL: No significant abnormality. COLON: No significant abnormality. APPENDIX: No significant abnormality. PERITONEUM: No free fluid. No free air. No fluid collection. LYMPH NODES: No significant adenopathy. AORTA and ARTERIES: No significant abnormality. IVC and VEINS: No significant abnormality. URINARY BLADDER: No significant abnormality. REPRODUCTIVE ORGANS: The uterus and right adnexa are unremarkable. Only a single left ovarian cyst is identified on today's exam measuring 2.6 cm which appears unchanged. A more anterior left ovarian cy st measuring 2.3 cm seen on the previous exam has resolved. ADDITIONAL FINDINGS: Multiple small ventral wall defects containing fat are identified at midline bet ween the umbilicus and xiphoid. These appear unchanged. SKELETAL SYSTEM: No significant abnormality. IMPRESSION: 1. No acute inflammatory process is appreciated. No clear explanation for epigastric pain. 2. Mild improvement in the left ovarian cysts as described. Signer Name: Deangelo Tobar Jr, MD Signed: 04/20/2022 9:31 AM Workstation Name: [id number]
[2022-04-20] MEDS ORDERED: diphenhydrAMINE 50 MG/ML VIAL ONE (10:00)
[2022-04-20 10:23] VITALS: BP 114/76
[2022-04-20] MEDS ORDERED: diphenhydrAMINE 50 MG/ML VIAL IV ONE (10:23)
== END 2022-04-20 13:07 | disposition home or self-care (01) ==
LOC: ED 17:25
DX: R10.9 Unspecified abdominal pain (principal); R11.2 Nausea with vomiting, unspecified; Z88.8 Allergy status to other drugs, medicaments and biological substances; F12.90 Cannabis use, unspecified, uncomplicated
CPT/HCPCS: 36415; 74177; 80053; 81001; 83690; 84702; 85025; 96361; 96372; 96374; 96375; 99284; J1200; J2270; J2405; J7030; Q9967; J3490; Q0162